=== PATIENT | female | born 2005 | race Caucasian/White ===

== ENCOUNTER 2024-12-14 06:22 | Inpatient (IN) | payer MEDICAID ==
[~2024-12-14] VITALS: Ht 162.6 cm; Wt 86.0 kg
[2024-12-14 14:18] VITALS: RESP 16; O2SAT 86
[2024-12-14 14:27] VITALS: BP 104/63; PULSE 86; RESP 16; TEMP 97.3; O2SAT 100
[2024-12-14] MEDS ORDERED: OMEP20CA16 PO (15:16)
[2024-12-14] MEDS ORDERED: HYDR-3686 PO (15:16)
[2024-12-14] MEDS ORDERED: MELA10TA2 PO (15:16)
[2024-12-14] MEDS ORDERED: PALI6TAB PO (15:16)
[2024-12-14] MEDS ORDERED: LITH450T2 PO (15:16)
[2024-12-14] MEDS ORDERED: ondansetron 4mg rapidly disintigrating tab PO PRN (16:05)
[2024-12-14] MEDS ORDERED: mag hydrox/Alum hydrox/simeth 30ml oral suspension PO PRN (18:00)
[2024-12-14] MEDS ORDERED: magnesium hydroxide 30ml (MOM) UD suspension PO PRN (18:00)
[2024-12-14 19:00] VITALS: RESP 18; O2SAT 98
[2024-12-14 20:00] VITALS: BP 111/75; PULSE 86; RESP 18; TEMP 98.6; O2SAT 98
[2024-12-14] MEDS: hydrOXYzine 25 MG tablet PO PRN (20:15)
[2024-12-14] MEDS: traZODone 50mg tablet PO PRN (20:15)
[2024-12-14] MEDS: diphenhydrAMINE 25mg capsule PO PRN (22:42)
[2024-12-15 07:00] VITALS: RESP 16; O2SAT 98
[2024-12-15 08:00] VITALS: BP 105/63; PULSE 82; RESP 12; TEMP 97.3; O2SAT 12
[2024-12-15 09:32] LABS: CHOL/HDL RATIO 3.2 (0.00-4.99); CHOLESTEROL 183 MG/DL (0-200); HDL CHOLESTEROL 58 MG/DL (35-60); LDL CHOLESTEROL 110 MG/DL (50-100); TRIGLYCERIDES 145 MG/DL (20-135)
[2024-12-15 09:39] LABS: HEMOGLOBIN A1C 5.2 % (4.5-6.2)
[2024-12-15] MEDS: pantoprazole 40mg Tablet.DR PO SCH (09:56)
[2024-12-15] MEDS: PALIPERIDONE 3 MG TAB.ER.24 PO SCH (09:57)
[2024-12-15] MEDS: hydrOXYzine 25 MG tablet PO SCH ×2 (09:57→17:00)
--- NOTE | 2024-12-15 11:14 | HISTORY AND PHYSICAL ---
History & Physical Providers to ~ History of Present Illness Reason for Admit\Complaint: Suicidal attempt, bipolar disorder History of Present Illness Nichole Juarez is a history of bipolar disorder, ADHD, PTSD, anxiety disorder who is admitted to [facility] for suicidal attempt and management of psychiatric disorder. Patient denies prior VA/CAD, CVA, cardiac arrhythmia, DVT/PE, or GIB. Patient reports ongoing suicidal ideation but denies HI, chest pain, palpitations, shortness of breath, abdominal pain, n/v/d, dysuria. Allergies: Coded Allergies: ibuprofen (Verified Adverse Reaction, Unknown, States cannot take due to taking [place], 12/14/24) lactase (Verified Adverse Reaction, Unknown, diarrhea, 12/14/24) lorazepam (Verified Adverse Reaction, Unknown, Hyper activity, 12/14/24) methylphenidate (Verified Adverse Reaction, Unknown, Hyper, 12/14/24) pamabrom (Verified Adverse Reaction, Unknown, States cannot take due to taking [place], 12/14/24) Home Medications Home Medications Active Reported Omeprazole 20 Mg Capsule.dr 1 Cap PO DAILY Melatonin 10 Mg Tablet 1 Tab PO HS Invega (Paliperidone) 6 Mg Tab.er.24 1 Tab PO QAM Atarax* (Hydroxyzine HCl) 25 Mg Tablet 2 Tab PO Q12H [place] Carbonate* ([place] Carbonate) 450 Mg Tablet.sa 2 Tab PO HS Past Medical History Past Medical History Bipolar disorder ADHD PTSD Anxiety disorder Past Surgical History Surgical History Comment Denies Past Social History Social History Comment Alcohol: Denies Tobacco: Denies, never Illicit drug use: Cannabis Living situation: Lives at home with family ROS ROS Other than positives in HPI, all 14 review of systems are negative Exam Vitals: Vital Signs Date Time Temp Pulse Resp B/P (MAP) Pulse Ox O2 Delivery O2 Flow Rate FiO2 12/15/24 08:00 97.3 82 12 105/63 (77) 12 Room Air General: A&Ox 3, NAD HEENT: Normocephalic, PERRLA Neck: Supple, trachea midline, no JVD Chest: Clear to auscultation bilaterally Cardiovascular: RRR, S1&S2 Abdomen: Soft and nontender Extremities: No cyanosis/clubbing/or edema Central Nervous System: CN II-XII intact, no focal deficits Musculoskeletal: No paraspinal muscle tenderness, no muscle spasm Skin: Closed, scabbed abrasions in left forearm and dorsal 3rd phalanx Additional Plan # Bipolar disorder # Suicidal ideation # ADHD # Anxiety disorder # PTSD -started on lithium, paliperidone; continue management per Psychiatry Service -follow UDS, baseline cbc, cmp # Substance abuse -cannabis, reported -follow UDS Hospitalist team will continue to follow for patient's medical needs Date of Service: December 15, 2024 Billing Provider: JUAN MENDIETA Common Visit Codes: [id number] INP/OBS CARE (HIGH) JUAN MENDIETA December 15, 2024 11:14
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
[2024-12-15 19:12] VITALS: RESP 14; O2SAT 96
[2024-12-15 19:39] VITALS: BP 106/64; PULSE 95; RESP 16; TEMP 98.1; O2SAT 99
[2024-12-15] MEDS: traZODone 50mg tablet PO SCH (19:42)
[2024-12-15] MEDS: Melatonin 3mg tablet PO SCH (20:40)
[2024-12-15] MEDS: lithium carbonate 300mg SR tablet (LithoBID) PO SCH (20:41)
[2024-12-15] MEDS ORDERED: lithium carbonate 450mg CR tablet PO SCH ×2 (21:00)
[2024-12-15] MEDS: acetaminophen 325mg tablet PO PRN (21:34)
[2024-12-16 07:00] VITALS: RESP 16; O2SAT 96
[2024-12-16] MEDS: lithium carbonate 300mg SR tablet (LithoBID) PO SCH (07:07)
[2024-12-16 08:00] VITALS: BP 109/62; PULSE 80; RESP 16; TEMP 97.7; O2SAT 96
[2024-12-16] MEDS ORDERED: PALIPERIDONE 3 MG TAB.ER.24 PO SCH (08:00)
[2024-12-16] MEDS ORDERED: pantoprazole 40mg Tablet.DR PO SCH (08:00)
[2024-12-16 08:02] LABS: BASOPHILS # (AUTO) 0.1 X10'3 (0-0.2); BASOPHILS % (AUTO) 0.8 % (0-1); EOSINOPHILS # (AUTO) 0.1 X10'3 (0-0.9); EOSINOPHILS % (AUTO) 1.8 % (0-6); HEMATOCRIT 38.3 % (35.0-45.0); LYMPHOCYTES % (AUTO) 52.8 % (21-51); MEAN CORPUSCULAR HEMOGLOBIN 29.9 PG (27.0-31.0); MEAN PLATELET VOLUME 8.6 FL (7.4-10.4); MONOCYTES # (AUTO) 0.3 X10'3 (0-0.9); MONOCYTES % (AUTO) 3.3 % (2-12); NEUTROPHILS # (AUTO) 3.2 X10'3 (1.8-7.7); NEUTROPHILS % (AUTO) 41.3 % (42-75); PLATELET COUNT 315 X10'3 (140-440); RED BLOOD COUNT 4.34 X10'6 (4.20-5.60); RED CELL DISTRIBUTION WIDTH 12.8 % (11.5-14.5); WHITE BLOOD COUNT 7.7 X10'3 (4.5-11.0)
[2024-12-16 08:23] LABS: ALANINE AMINOTRANSFERASE 55 U/L (12-78); ALBUMIN 3.8 G/DL (3.4-5.0); ALBUMIN/GLOBULIN RATIO 1.3 (1.1-1.5); ALKALINE PHOSPHATASE 63 IU/L (20-180); ANION GAP 7 (8-16); ASPARTATE AMINO TRANSFERASE 24 U/L (10-37); BILIRUBIN,TOTAL 0.8 MG/DL (0.1-1.0); BLOOD UREA NITROGEN 8 MG/DL (7-18); BUN/CREATININE RATIO 10.7 (10.0-20.0); CHLORIDE 106 MMOL/L (99-107); CREATININE 0.75 MG/DL (0.40-0.90); GLUCOSE 120 MG/DL (70-104); POTASSIUM 4.3 MMOL/L (3.5-5.1); SODIUM 139 MMOL/L (135-145); TOTAL CARBON DIOXIDE 26.4 MMOL/L (24-32); TOTAL PROTEIN 6.8 G/DL (6.4-8.2); eCRCL 103 ML/MIN; eGFR > 90 ML/MIN
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
[2024-12-16 19:00] VITALS: RESP 16; O2SAT 99
[2024-12-16 20:00] VITALS: BP 109/70; PULSE 87; RESP 16; TEMP 97.8; O2SAT 99
[2024-12-17 07:00] VITALS: RESP 14; O2SAT 94
[2024-12-17 08:00] VITALS: BP 99/55; PULSE 70; RESP 14; TEMP 97.5; O2SAT 94
--- NOTE | 2024-12-17 14:39 | PROGRESS NOTE ---
Progress Note Dictate Providers to CC ~ Central Line/PICC still needed: N\\A Antibiotic Ordered?: No Objective Vitals Vital Signs Date Time Temp Pulse Resp B/P (MAP) Pulse Ox O2 Delivery O2 Flow Rate FiO2 12/17/24 08:00 97.5 70 14 99/55 (70) 94 12/17/24 07:00 Room Air Lab Results: 12/16/24 0723 12/16/24 0727 Counseling Services Smoking & Tobacco Cessation: > 10 Minutes Problem\\Assessment\\Plan Problems/Diagnosis: (1) Bipolar 1 disorder with moderate reinaldo (2) Major depression, recurrent (3) Anxiety (4) Separation anxiety disorder (5) Personality disorder, unspecified Psychiatrist's Progress Note Date of Service: December 17, 2024 Notes CHART REVIEW Crisis intervention received a call from patient parents that Nichole was feeling suicidal. Nichole has a extensive history of suicidal ideation with previous attempts. Current plan is to either cut wrists with knife or run in front of cars. ASSESSMENT The patient was interviewed in observation room. The patient was actively sitting in rec room. The patient endorses "I am a lot better but not fully better." 'I am a little suicidal but not necessarily where I will go through with it." "I don't want to kick Bruce's ass anymore." The patient sleep and food intake. The patient endorses adequate sleep and food intake. Denies VH. The patient is stable no acute distress noted. The patient is a bit hyperverbal, less depressed, and engaged during session. Per staff report patient is medication compliant. Per staff report no abnormal behaviors. Will continue daily assessment and adjusting treatment as needed. Closely monitor behavior and response to medication during hospitalization. . Results Of any Diagn. Testing REVIEW OF LABS URINALYSIS NEGATIVE URINE TOX SCREEN POSITIVE FOR THC WBC 10.7 RBC 4.13 HEMOGLOBIN 12.4 HEMATOCRIT 36.7 PLATELETS 317 SODIUM 144 POTASSIUM 4.0 CHLORIDE 112 ANION GAP 11 GLUCOSE 65 BUN 11 CREATININE 0.89 CALCIUM 9.9 ALT41 AST30 Appearnace: Other (APPROPRIATE.OBESE AVERGAE HEIGHT FEMALE. SHORT ZOILA BROWN HAIR. WEARING GREEN SCRUBS) Speech: Other (CIRCUMSTANTIAL) Eye Contact: Normal Motor Activity: Normal Affect: Full Orientation Impairment: None Memory Impairment: None Attention: Normal Hallucinations: None Other: None Suicidality: None Homicidality: None Delusions: None Behavior: Cooperative Insight: Fair, Poor Judgment: Poor Treatment HYDROXYZINE 50MG P.O. T.I.D. LITHIUM CARBONATE 900 MG P.O. Q.H.S. Discontinue LITHIUM CARBONATE 300 MG P.O. QAM TRAZODONE 100 MG P.O. Q.H.S. Initiate DEPAKOTE ER 500 MG P.O. Q.H.S. Monitoring by Staff, Milieu, Group, and Individual counseling as needed -- According to the [place] Suicide Assessment the above named patient is on Q15 MINUTE CHECKS. VOLUNTARY REVIEW OF Clinical notes [X ] RN notes [X] PCT documentation [X] SW notes Labs [ X] Medications [X] Care trends/care activity [X] Vitals [X] DISCUSSION WITH advertiser [X] Staff SW [X] Treatment Team [X] Discharge UNSURE AT THIS TIME. DISCHARGE HOME ONCE STABLE. CODING VISIT-PSYCHIATRY Date of Service: December 17, 2024 Billing Provider: ALIDA JORDAN APRN Psych Common Visit Codes: [id number] INP/OBS CARE(Mod) ALIDA JORDAN APRN December 17, 2024 14:39
--- NOTE | 2024-12-17 14:55 | PROGRESS NOTE- Residence ---
Progress Note - Resident Providers to CC Resident Creating Document: MERY COOMBS, RES CC: DEVAUGHN LOCKETT MD ~ Antibiotic Timeout Antibiotic Ordered?: No Subjective Patient was examined at bedside, complains of stye in her right eye. Objective Vital Signs Date Time Temp Pulse Resp B/P (MAP) Pulse Ox O2 Delivery O2 Flow Rate FiO2 12/17/24 08:00 97.5 70 14 99/55 (70) 94 12/17/24 07:00 Room Air Result Diagram: 12/16/24 0723 12/16/24 0727 General: Alert, awake, oriented, not in acute distress HEENT: Erythematous on her lower lid of her right eye, PERRLA, no icterus, pallor, lymphadenopathy, carotid bruit Respiratory system: Bilateral vesicular breath sounds heard, no adventitious breath sounds CVS: S1-S2 heard, no murmurs/rubs/gallop GI: Soft, nontender, no organomegaly, no guarding/rigidity, bowel sounds present Neuro: No focal neurological deficits present Extremities: No edema cyanosis clubbing/deformities Skin: Warm and dry Assessment Assessment A 19-year-old female with a psychiatric history in the [facility] has been reviewed for any medical complaints. Plan Plan Stye in the right eye Hot compress Tylenol p.r.n. Bipolar 1 disorder with moderate reinaldo (2) Major depression, recurrent (3) Anxiety (4) Separation anxiety disorder (5) Personality disorder, unspecified Managed as per psych team Hospitalist team will continue to follow up Mery Coombs MD Internal Medicine, PGY 1 Date of Service: December 17, 2024 Billing Provider: DEVAUGHN LOCKETT MD, SIVA, MADELIN December 17, 2024 14:55
[2024-12-17 19:00] VITALS: RESP 16; O2SAT 99
[2024-12-17 20:00] VITALS: BP 115/60; PULSE 87; RESP 16; TEMP 98.3; O2SAT 99
[2024-12-17] MEDS: lithium carbonate 300mg SR tablet (LithoBID) PO SCH (20:12)
[2024-12-17] MEDS: divalproex sod 250mg ER (24-hour) tablet PO SCH (20:12)
[2024-12-18 07:00] VITALS: RESP 12; O2SAT 100
[2024-12-18 07:25] VITALS: BP 103/60; PULSE 67; RESP 12; TEMP 96.9; O2SAT 100
--- NOTE | 2024-12-18 14:23 | PROGRESS NOTE ---
Progress Note Dictate Providers to CC ~ Central Line/PICC still needed: N\\A Antibiotic Ordered?: No MRSA Education MRSA Education Provided to pt: No Objective Vitals Vital Signs Date Time Temp Pulse Resp B/P (MAP) Pulse Ox O2 Delivery O2 Flow Rate FiO2 12/18/24 07:25 96.9 67 12 103/60 (74) 100 12/17/24 19:00 Room Air Lab Results: 12/16/24 0723 12/16/24 0727 Problem\\Assessment\\Plan Problems/Diagnosis: (1) Bipolar 1 disorder with moderate reinaldo (2) Major depression, recurrent (3) Anxiety (4) Separation anxiety disorder (5) Personality disorder, unspecified Psychiatrist's Progress Note Date of Service: December 18, 2024 Notes CHART REVIEW Crisis intervention received a call from patient parents that Nichole was feeling suicidal. Nichole has a extensive history of suicidal ideation with previous attempts. Current plan is to either cut wrists with knife or run in front of cars. ASSESSMENT The patient was interviewed in observation room. The patient was actively sitting in rec room. The patient endorses "Good." The patient endorses "I am no longer suicidal and I do not hear voices." The patient sleep and food intake. The patient endorses adequate sleep and food intake. Denies SI. Denies HI. Denies VH. The patient is stable no acute distress noted. The patient is a calm, cooperative, and engaged during session. Per staff report patient is medication compliant. Per staff report no abnormal behaviors. Will continue daily assessment and adjusting treatment as needed. Closely monitor behavior and response to medication during hospitalization. . Results Of any Diagn. Testing Results Of any Diagn. Testing REVIEW OF LABS URINALYSIS NEGATIVE URINE TOX SCREEN POSITIVE FOR THC WBC 10.7 RBC 4.13 HEMOGLOBIN 12.4 HEMATOCRIT 36.7 PLATELETS 317 SODIUM 144 POTASSIUM 4.0 CHLORIDE 112 ANION GAP 11 GLUCOSE 65 BUN 11 CREATININE 0.89 CALCIUM 9.9 ALT41 AST30 Appearnace: Other (APPROPRIATE.OBESE AVERGAE HEIGHT FEMALE. SHORT ZOILA BROWN HAIR. WEARING GREEN SCRUBS) Speech: Other (CIRCUMSTANTIAL) Eye Contact: Normal Motor Activity: Normal Affect: Full Mood: Euthymic Orientation Impairment: None Memory Impairment: None Attention: Normal Hallucinations: None Other: None Suicidality: None Homicidality: None Delusions: None Behavior: Cooperative Insight: Fair Judgment: Fair, Poor Treatment HYDROXYZINE 50MG P.O. T.I.D. LITHIUM CARBONATE 900 MG P.O. Q.H.S. Discontinue LITHIUM CARBONATE 300 MG P.O. QAM TRAZODONE 100 MG P.O. Q.H.S. Initiate DEPAKOTE ER 500 MG P.O. Q.H.S. Monitoring by Staff, Milieu, Group, and Individual counseling as needed -- According to the [place] Suicide Assessment the above named patient is on Q15 MINUTE CHECKS. VOLUNTARY REVIEW OF Clinical notes [X ] RN notes [X] PCT documentation [X] SW notes Labs [ X] Medications [X] Care trends/care activity [X] Vitals [X] DISCUSSION WITH rcp [X] Staff SW [X] Treatment Team [X] Discharge UNSURE AT THIS TIME. DISCHARGE HOME ONCE STABLE. CODING VISIT-PSYCHIATRY Date of Service: December 18, 2024 Billing Provider: ALIDA JORDAN APRN Psych Common Visit Codes: [id number] INP/OBS CARE(Low) ALIDA JORDAN APRN December 18, 2024 14:23
[2024-12-18 19:41] VITALS: RESP 16; O2SAT 98
[2024-12-18 20:00] VITALS: BP 119/54; PULSE 102; RESP 16; TEMP 98; O2SAT 98
[2024-12-18] MEDS: loperamide 2mg capsule PO PRN (21:05)
[2024-12-19] MEDS ORDERED: PALI6TAB PO (05:13)
[2024-12-19] MEDS ORDERED: LITH450T2 PO (05:13)
[2024-12-19] MEDS ORDERED: DIVA250T8 PO (05:13)
[2024-12-19 07:30] VITALS: BP 101/66; PULSE 76; RESP 20; TEMP 96.3; O2SAT 96
[2024-12-19 08:00] VITALS: RESP 20; O2SAT 96
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
--- NOTE | 2024-12-19 14:49 | PROGRESS NOTE ---
Daily Progress Note Providers to CC New complaint today, resting comfortably in the bed ~ Central Line/PICC still needed: No Joshua-Non Protocol Joshua Indications Met/Not Met: F/C Indications Not Met Antibiotic Timeout Antibiotic Ordered?: No MRSA Education MRSA Education Provided to pt: No Subjective As above Objective Vital Signs Date Time Temp Pulse Resp B/P (MAP) Pulse Ox O2 Delivery O2 Flow Rate FiO2 12/19/24 08:00 20 96 Room Air 12/19/24 07:30 96.3 76 101/66 (78) Vital signs, stable ,afebrile. Pulse Oximetry reflects adequate oxygenation. BMI is 32, weight 86 kg General: well developed, well nourished. Awake , alert, and oriented x4, resting comfortably in the bed, in no acute distress . Skin: Warm, dry, no pallor, no rash or petechiae. HEENT: Atraumatic, normocephalic, EOMI, anicteric sclera B; pink conjunctiva; PERRLA, normal oropharynx, moist oral and nasal mucosa. Tympanic membrane , nose , throat clear. Neck: Trachea midline. Supple, full range of motion, no JVD, bruit , hepatojugular reflex , lymphadenopathy or masses, or other lesions Cardiac: Regular rhythm, regular rate no murmurs, rubs, or gallops. Normal S1 and S2, no S3 noticed. PMI is normal. Respiratory: Equal breath sounds bilaterally, no tachypnea; lungs clear to auscultation bilaterally, no wheezing ,rub or rales, or crackles. Chest wall is symmetric and without deformity. No signs of trauma. Chest wall is nontender. No signs of respiratory distress. Resonance is normal upon percussion bilaterally. Gastrointestinal: Abdomen symmetric, non-distended, soft, non-tender, normal bowel sounds x4 quadrant, normoactive, no hepatosplenomegaly , no masses , no bruit, no flank pain bilaterally. No voluntary guarding, rebound, or rigidity. No tenderness to percussion. No pulsatile masses. Equal femoral pulses. No Kam's sign or McBurney point tenderness. Back; no CVA tenderness bilaterally, no deformities. Neck and back are without deformity as well. No tenderness noted on palpation of the spinous processes. Spinous processes are midline. Cervical, thoracic, and lumbar paraspinal muscles are not tender and are without spasm. Musculoskeletal: Extremities, normal range of motion, non-tender, muscle strength 5/5 x 4. Negative Homans signs bilaterally on lower extremity. Distal pulses full symmetrical, no clubbing, cyanosis , edema. Neurological: Speech is clear, alert, and oriented x 4. No motor or sensory deficit, deep tendon reflexes normal, cerebellar intact. Cranial nerves II-XII intact. Psych: Alert and or appropriate, normal affect. Vascular: Good distal pulses, which are equal x4; capillary refill less than 2 seconds. Lymphatic, no lymphadenopathy. Result Diagram: 12/16/24 0723 12/16/24 0727 Problem\Assessment\Plan Assessment/plan A 19-year-old female with a psychiatric history in the [facility] has been reviewed for any medical complaints. Stye in the right eye Hot compress Tylenol p.r.n. Bipolar 1 disorder with moderate reinaldo (2) Major depression, recurrent (3) Anxiety (4) Separation anxiety disorder (5) Personality disorder, unspecified Managed as per psych team Hospitalist team will continue to follow up per hospital protocol Sepsis Screening Reassessment Date: December 19, 2024 Date of Service: December 19, 2024 Billing Provider: KASH PEREYRA MD Common Visit Codes: [id number] INP/OBS CARE(MOD) KASH PEREYRA MD December 19, 2024 14:49
== END 2024-12-19 12:45 | disposition home or self-care (01) | DRG 753 ==
LOC: ADULT MH 10:43 → UNDOADMIN 10:43 → ADULT MH 14:22
PROVIDERS: ADMIT Psychiatry & Neurology Psychiatry; ATTEND Psychiatry & Neurology Psychiatry
PROC: GZHZZZZ Group Psychotherapy (ICD-10-PCS; principal; 2024-12-15)
PROC: GZ51ZZZ Individual Psychotherapy, Behavioral (ICD-10-PCS; 2024-12-15)
DX: F31.12 Bipolar disorder, current episode manic without psychotic features, moderate (principal); R45.851 Suicidal ideations; F43.10 Post-traumatic stress disorder, unspecified; F90.9 Attention-deficit hyperactivity disorder, unspecified type; F93.0 Separation anxiety disorder of childhood; F60.9 Personality disorder, unspecified; H00.012 Hordeolum externum right lower eyelid; F12.10 Cannabis abuse, uncomplicated; Z79.899 Other long term (current) drug therapy; Z88.6 Allergy status to analgesic agent; Z88.8 Allergy status to other drugs, medicaments and biological substances; Z91.018 Allergy to other foods
CPT/HCPCS: 36415; 80053; 80061; 80178; 83036; 85025; 87081; Q0163; Q0177